=== PATIENT | male | born 1995 | race Caucasian/White ===

== ENCOUNTER 2024-06-05 01:49 | Emergency (ER) | payer SELFPAY ==
[2024-06-05 01:54] VITALS: BP 147/97; PULSE 98; RESP 15; TEMP 36.6; O2SAT 96
--- NOTE | 2024-06-05 01:58 | ED.EAR ---
HPI - Ear Problem General Chief complaint: Ear <Juliane Larry PA-C - Last Filed: 06/05/24 02:23> Stated complaint: bug in right ear <Juliane Larry PA-C - Last Filed: 06/05/24 02:23> Time Seen by Provider: 06/05/24 01:55 <Juliane Larry PA-C - Last Filed: 06/05/24 02:23> Source: patient <Juliane Larry PA-C - Last Filed: 06/05/24 02:23> Mode of arrival: ambulatory <Juliane Larry PA-C - Last Filed: 06/05/24 02:23> Limitations: no limitations <Juliane Larry PA-C - Last Filed: 06/05/24 02:23> History of Present Illness HPI Narrative: This is a 29-year-old male that presents to the emergency department for about in his ear. He woke up to feeling abnormal sensations in his ear. They tried several things at home were unable to remove the bug. He still hears it moving. <Juliane Larry PA-C - Last Filed: 06/05/24 02:23> Related Data Allergies/adverse reactions: Allergies Allergy/AdvReac Type Severity Reaction Status Date / Time No Known Allergies Allergy Verified 06/05/24 01:51 <Juliane Larry PA-C - Last Filed: 06/05/24 02:23> Review of Systems Review of Systems: CONSTITUTIONAL: Denies fever, ENT: Reports foreign body <Juliane Larry PA-C - Last Filed: 06/05/24 02:23> All systems reviewed & are unremarkable except as noted in HPI and below <Juliane Larry PA-C - Last Filed: 06/05/24 02:23> [facility] Past Medical History Medical History: Medical History (Updated 06/05/24 @ 02:19 by Juliane Larry PA-C) No active medical problems <Juliane Larry PA-C - Last Filed: 06/05/24 02:23> Social History Social History: Social History (Updated 06/05/24 @ 02:09 by Juliane Larry PA-C) Substance use: never <Juliane Larry PA-C - Last Filed: 06/05/24 02:23> Exam Narrative: GENERAL: Well-appearing, well-nourished, and in no acute distress. HEAD: Normocephalic, atraumatic. EYES: EOMI. ENT: Right external auditory canal with bug present EXTREMITIES: Normal range of motion. No edema. SKIN: Warm, dry, no rash. NEURO: No focal deficits. Alert and oriented x3. PSYCH: Normal mood and affect <Juliane Larry PA-C - Last Filed: 06/05/24 02:23> Course NURSE CLINICIAN/PA Physician Supervision I agree with midlevel documentation; I performed the medical decision making component of this evaluation as well as my independent evaluation assessment the patient. I did perform the foreign body removal from the ear. <Estuardo Meadows MD - Last Filed: 06/05/24 04:25> Vital Signs Vital signs: Vital Signs Temperature 36.6 C 06/05/24 01:54 Pulse Rate 98 06/05/24 01:54 Respiratory Rate 15 06/05/24 01:54 Blood Pressure 147/97 H 06/05/24 01:54 Pulse Oximetry 96 06/05/24 01:54 Oxygen Delivery Room Air 06/05/24 01:54 Temperature 36.6 C 06/05/24 01:54 Pulse Rate 98 06/05/24 01:54 Respiratory Rate 15 06/05/24 01:54 Blood Pressure 147/97 H 06/05/24 01:54 Pulse Oximetry 96 06/05/24 01:54 Oxygen Delivery Room Air 06/05/24 01:54 <Juliane Larry PA-C - Last Filed: 06/05/24 02:23> Vital Signs Temperature 36.6 C 06/05/24 01:54 Pulse Rate 98 06/05/24 01:54 Respiratory Rate 15 06/05/24 01:54 Blood Pressure 147/97 H 06/05/24 01:54 Pulse Oximetry 96 06/05/24 01:54 Oxygen Delivery Room Air 06/05/24 01:54 Temperature 36.6 C 06/05/24 01:54 Pulse Rate 98 06/05/24 01:54 Respiratory Rate 15 06/05/24 01:54 Blood Pressure 147/97 H 06/05/24 01:54 Pulse Oximetry 96 06/05/24 01:54 Oxygen Delivery Room Air 06/05/24 01:54 <Estuardo Meadows MD - Last Filed: 06/05/24 04:25> Procedures FB Removal Ear Foreign Body #1: Foreign Body Removal Date: 06/05/24 <Juliane Larry PA-C - Last Filed: 06/05/24 02:23> Foreign Body Removal Time: 02:21 <Juliane Larry PA-C - Last Filed: 06/05/24 02:23> Location: ear canal (R) <Juliane Larry PA-C - Last Filed: 06/05/24 02:23> ear canal (R) <Estuardo Meadows MD - Last Filed: 06/05/24 04:25> Foreign Body Suspected: insect (2 insects were removed) <Juliane Larry PA-C - Last Filed: 06/05/24 02:23> insect <Estuardo Meadows MD - Last Filed: 06/05/24 04:25> TM intact pre-procedure: yes <Juliane Larry PA-C - Last Filed: 06/05/24 02:23> yes <Estuardo Meadows MD - Last Filed: 06/05/24 04:25> If Insect Suspected: ear canal instilled with Lidocaine <Juliane Larry PA-C - Last Filed: 06/05/24 02:23> ear canal instilled with Lidocaine <Estuardo Meadows MD - Last Filed: 06/05/24 04:25> Foreign Body Removed: yes <Juliane Larry PA-C - Last Filed: 06/05/24 02:23> yes <Estuardo Meadows MD - Last Filed: 06/05/24 04:25> Foreign Body Removal Technique: forceps <Juliane Larry PA-C - Last Filed: 06/05/24 02:23> forceps <Estuardo Meadows MD - Last Filed: 06/05/24 04:25> Tympanic Membrane Intact Post Procedure: Yes <Juliane Larry PA-C - Last Filed: 06/05/24 02:23> Yes <Estuardo Meadows MD - Last Filed: 06/05/24 04:25> Patient Tolerated Procedure: well and no complications <Juliane Larry PA-C - Last Filed: 06/05/24 02:23> well and no complications <Estuardo Meadows MD - Last Filed: 06/05/24 04:25> Complications: none <Juliane Larry PA-C - Last Filed: 06/05/24 02:23> none <Estuardo Meadows MD - Last Filed: 06/05/24 04:25> Additional Comments: procedure performed by Dr. Meadows <Juliane Larry PA-C - Last Filed: 06/05/24 02:23> Medical Decision Making MDM Narrative Medical decision making narrative: Patient presents to the emergency department for bug in his ear. 2 bugs were successfully removed. TM is intact post removal. No trauma to the external auditory canal. Patient to follow-up with PCP as needed <Juliane Larry PA-C - Last Filed: 06/05/24 02:23> Vital Signs Vital Signs: Vital Signs Temperature 36.6 C 06/05/24 01:54 Pulse Rate 98 06/05/24 01:54 Respiratory Rate 15 06/05/24 01:54 Blood Pressure 147/97 H 06/05/24 01:54 Pulse Oximetry 96 06/05/24 01:54 Oxygen Delivery Room Air 06/05/24 01:54 Temperature 36.6 C 06/05/24 01:54 Pulse Rate 98 06/05/24 01:54 Respiratory Rate 15 06/05/24 01:54 Blood Pressure 147/97 H 06/05/24 01:54 Pulse Oximetry 96 06/05/24 01:54 Oxygen Delivery Room Air 06/05/24 01:54 <Juliane Larry PA-C - Last Filed: 06/05/24 02:23> Vital Signs Temperature 36.6 C 06/05/24 01:54 Pulse Rate 98 06/05/24 01:54 Respiratory Rate 15 06/05/24 01:54 Blood Pressure 147/97 H 06/05/24 01:54 Pulse Oximetry 96 06/05/24 01:54 Oxygen Delivery Room Air 06/05/24 01:54 Temperature 36.6 C 06/05/24 01:54 Pulse Rate 98 06/05/24 01:54 Respiratory Rate 15 06/05/24 01:54 Blood Pressure 147/97 H 06/05/24 01:54 Pulse Oximetry 96 06/05/24 01:54 Oxygen Delivery Room Air 06/05/24 01:54 <Estuardo Meadows MD - Last Filed: 06/05/24 04:25> Critical Care Time Critical Care Time Critical Care Time: No <Juliane Larry PA-C - Last Filed: 06/05/24 02:23> Discharge Plan Discharge Clinical Impression: Foreign body in right ear Qualifiers: Encounter type: initial encounter Qualified Code(s): T16.1XXA - Foreign body in right ear, initial encounter <Juliane Larry PA-C - Last Filed: 06/05/24 02:23> Patient Disposition: Home, Self-Care <Juliane Larry PA-C - Last Filed: 06/05/24 02:23> Condition: Stable <Juliane Larry PA-C - Last Filed: 06/05/24 02:23> Instructions: Ear Foreign Body (ED) <Juliane Larry PA-C - Last Filed: 06/05/24 02:23> Additional Instructions: Return to the ER if you experience fever, redness and swelling of your ear, or any other symptoms that are concerning to you Follow up with your PCP as needed <Juliane Larry PA-C - Last Filed: 06/05/24 02:23> Follow-up/Referrals: PHYSICIAN NOT ON STAFF,NONSTAFF [Primary Care Provider] - Toby Elkins MD [Physician] - <Juliane Larry PA-C - Last Filed: 06/05/24 02:23>
== END 2024-06-05 02:39 | disposition home or self-care (01) ==
LOC: ANHED 02:26
PROVIDERS: Emergency Provider Physician Assistant
DX: T16.1XXA Foreign body in right ear, initial encounter (principal); W44.F4XA Insect entering into or through a natural orifice, initial encounter
CPT/HCPCS: 69200; 99282; J2003

== ENCOUNTER 2024-06-09 11:59 | Emergency (ER) | payer SELFPAY ==
[2024-06-09 12:20] VITALS: BP 153/86; PULSE 104; RESP 17; TEMP 36.7; O2SAT 99
--- NOTE | 2024-06-09 12:54 | ED.WOUNDLAC ---
HPI - Wound/Laceration General Chief Complaint: Wound/Laceration <Juliane Larry PA-C - Last Filed: 06/09/24 18:35> Stated Complaint: L arm lac <Juliane Larry PA-C - Last Filed: 06/09/24 18:35> Time Seen by Provider: 06/09/24 12:54 <Juliane Larry PA-C - Last Filed: 06/09/24 18:35> Focused HPI: This is a 29 year old male that presents to the ER for laceration to the left forearm. Reports sustained just before arrival. Unsure of last tetanus vaccination. Reports he was cutting a box and accidentally got his arm caught on a piece of metal. Denies decreased ROM or numbness. GENERAL: Well-appearing, well-nourished, and in no acute distress. HEAD: Normocephalic, atraumatic. CHEST: Clear to auscultation. ?No respiratory distress. HEART: Regular rate and rhythm.? NEURO: ?Alert and oriented x3. Patient screened in triage and initial orders placed.? ?Additional care and disposition to be based upon?diagnostic testing and treatment. <Juliane Larry PA-C - Last Filed: 06/09/24 18:35> History of Present Illness HPI narrative: I agree with the above HPI <Rayo Herrera MD - Last Filed: 06/10/24 18:29> Related Data Allergies/Adverse Reactions: Allergies Allergy/AdvReac Type Severity Reaction Status Date / Time No Known Allergies Allergy Verified 06/09/24 12:00 <Juliane Larry PA-C - Last Filed: 06/09/24 18:35> Review of Systems Review of Systems: CONSTITUTIONAL: Denies fever SKIN: Reports laceration <Juliane Larry PA-C - Last Filed: 06/09/24 18:35> All systems reviewed & are unremarkable except as noted in HPI and below <Juliane Larry PA-C - Last Filed: 06/09/24 18:35> [facility] Past Medical History Medical History: Medical History (Updated 06/10/24 @ 00:00 by Background Daemon) No active medical problems <Juliane Larry PA-C - Last Filed: 06/09/24 18:35> Social History Social History: Social History (Updated 06/05/24 @ 02:09 by Juliane Larry PA-C) Substance use: never <Juliane Larry PA-C - Last Filed: 06/09/24 18:35> Exam Narrative: GENERAL: Well-appearing, well-nourished, and in no acute distress. HEAD: Normocephalic, atraumatic. EYES: EOMI. EXTREMITIES: Normal range of motion. No edema. 3cm linear laceration into subcutaneous tissue to the left forearm SKIN: Warm, dry, no rash. NEURO: No focal deficits. Alert and oriented x3. PSYCH: Normal mood and affect <Juliane Larry PA-C - Last Filed: 06/09/24 18:35> Course Vital Signs Vital signs: Vital Signs Temperature 98.1 F 06/09/24 12:20 Pulse Rate 104 H 06/09/24 12:20 Respiratory Rate 17 06/09/24 12:20 Blood Pressure 153/86 H 06/09/24 12:20 Pulse Oximetry 99 06/09/24 12:20 Oxygen Delivery Room Air 06/09/24 12:20 Temperature 98.1 F 06/09/24 14:59 Pulse Rate 71 06/09/24 14:59 Respiratory Rate 17 06/09/24 14:59 Blood Pressure 118/89 06/09/24 14:59 Pulse Oximetry 99 06/09/24 14:59 Oxygen Delivery Room Air 06/09/24 12:20 <Juliane Larry PA-C - Last Filed: 06/09/24 18:35> Vital Signs Temperature 98.1 F 06/09/24 12:20 Pulse Rate 104 H 06/09/24 12:20 Respiratory Rate 17 06/09/24 12:20 Blood Pressure 153/86 H 06/09/24 12:20 Pulse Oximetry 99 06/09/24 12:20 Oxygen Delivery Room Air 06/09/24 12:20 Temperature 98.1 F 06/09/24 14:59 Pulse Rate 71 06/09/24 14:59 Respiratory Rate 17 06/09/24 14:59 Blood Pressure 118/89 06/09/24 14:59 Pulse Oximetry 99 06/09/24 14:59 Oxygen Delivery Room Air 06/09/24 12:20 <Rayo Herrera MD - Last Filed: 06/10/24 18:29> Procedures Laceration Laceration 1: Time: 14:48 <Rayo Herrera MD - Last Filed: 06/10/24 18:29> Site: upper extremity <Rayo Herrera MD - Last Filed: 06/10/24 18:29> Side (If applicable): left <Rayo Herrera MD - Last Filed: 06/10/24 18:29> Size (cm): 3 <Rayo Herrera MD - Last Filed: 06/10/24 18:29> Description: linear, flap and irregular <Rayo Herrera MD - Last Filed: 06/10/24 18:29> Depth: simple, single layer <Rayo Herrera MD - Last Filed: 06/10/24 18:29> Local Anesthetic: lidocaine 1% and with epi <Rayo Herrera MD - Last Filed: 06/10/24 18:29> Amount of anesthesia used (mL): 5 <Rayo Herrera MD - Last Filed: 06/10/24 18:29> Pre-repair: wound explored and irrigated <Rayo Herrera MD - Last Filed: 06/10/24 18:29> ====== Skin Level ======: Skin layer closed with: prolene <Rayo Herrera MD - Last Filed: 06/10/24 18:29> Size (cm): 4-0 <Rayo Herrera MD - Last Filed: 06/10/24 18:29> Number of sutures: 6 <Rayo Herrera MD - Last Filed: 06/10/24 18:29> ====== Subcutaneous Layer ======: ====== Muscle Layer ======: ====== Tendon Layer ======: MDM - Wound/Laceration MDM Narrative Medical decision making narrative: 29-year-old male presents emergency department for evaluation of a laceration to his arm. Laceration was repaired as described above. All questions concerns were addressed patient was comfortable the plan for discharge and close follow-up. <Rayo Herrera MD - Last Filed: 06/10/24 18:29> Differential Diagnosis Differential diagnosis: Likely laceration and avulsion of skin <JAMES Robles Last Filed: 06/09/24 18:35> Critical Care Time Critical Care Time Critical Care Time: No <JAMES Robles Last Filed: 06/09/24 18:35> Discharge Plan Discharge Clinical Impression: Laceration <JAMES Robles Last Filed: 06/09/24 18:35> Patient Disposition: Home, Self-Care <JAMES Robles Last Filed: 06/09/24 18:35> Condition: Stable <JAMES Robles Last Filed: 06/09/24 18:35> Instructions: Antibiotic Form, Care For Your Stitches (ED) <Juliane Larry PA-C - Last Filed: 06/09/24 18:35> Additional Instructions: Wound care as directed. Sutures will need to be removed in 7-10 days. Please have close follow-up with your primary care physician. <Juliane Larry PA-C - Last Filed: 06/09/24 18:35> Follow-up/Referrals: PHYSICIAN NOT ON STAFF,NONSTAFF [Non-Staff] - <Juliane Larry PA-C - Last Filed: 06/09/24 18:35>
[2024-06-09] MEDS: TETANUS,DIPHTHERIA,AC PERTUSSIS ADULT (0.5 ML) BOOSTRIX IM (13:03)
[2024-06-09 14:59] VITALS: BP 118/89; PULSE 71; RESP 17; TEMP 36.7; O2SAT 99
== END 2024-06-09 15:00 | disposition home or self-care (01) ==
PROVIDERS: Emergency Provider Emergency Medicine
DX: S51.812A Laceration without foreign body of left forearm, initial encounter (principal); W26.8XXA Contact with other sharp object(s), not elsewhere classified, initial encounter; Z23 Encounter for immunization
CPT/HCPCS: 12002; 90471; 90715; 99283

== ENCOUNTER 2024-06-16 15:50 | Emergency (ER) | payer OTHER, SELFPAY ==
[2024-06-16 15:55] VITALS: BP 149/88; PULSE 95; RESP 18; TEMP 36.4; O2SAT 100
--- NOTE | 2024-06-16 16:11 | ED_ITS ---
HPI - Recheck/Abnormal Lab/Rx General Chief Complaint: Recheck/Abnormal Lab/Rx Stated Complaint: I need to get my stiches removed Time Seen by Provider: 06/16/24 15:59 Source: patient Mode of arrival: ambulatory Limitations: no limitations History of Present Illness HPI narrative: This is a 29-year-old male who presents to the ED for suture removal. Denies pain or signs of infection. Related Data Allergies Allergy/AdvReac Type Severity Reaction Status Date / Time No Known Allergies Allergy Verified 06/16/24 15:51 Review of Systems Review of Systems: All systems as dictated in HPI [facility] Past Medical History Medical History (Updated 06/16/24 @ 16:30 by Son Hayes PA-C) No active medical problems Social History Social History (Updated 06/05/24 @ 02:09 by Juliane Larry PA-C) Substance use: never Exam Narrative: GENERAL: Well-appearing, well-nourished, and in no acute distress. SKIN: Warm, dry, no rash. 6 Prolene sutures to the left upper extr emity. No purulence. No surrounding erythema NEURO: Alert and oriented x4. No focal deficits. PSYCH: Normal mood and affect. Course Vital Signs Vital signs: Vital Signs Temperature 97.6 F 06/16/24 15:55 Pulse Rate 95 06/16/24 15:55 Respiratory Rate 18 06/16/24 15:55 Blood Pressure 149/88 H 06/16/24 15:55 Pulse Oximetry 100 06/16/24 15:55 Oxygen Delivery Room Air 06/16/24 15:55 Temperature 97.6 F 06/16/24 15:55 Pulse Rate 95 06/16/24 15:55 Respiratory Rate 18 06/16/24 15:55 Blood Pressure 149/88 H 06/16/24 15:55 Pulse Oximetry 100 06/16/24 15:55 Oxygen Delivery Room Air 06/16/24 15:55 MDM - Recheck/Abnormal Lab/Rx MDM Narrative Medical decision making narrative: 21-year-old male presents to the ED for suture removal. Six sutures were removed today. He has a bit of tissue still open to the distal aspect of the laceration although otherwise it is well healed. One Steri-Strip was placed for approximation today. Patient will be discharged in stable condition. Discharge Plan Discharge Clinical Impression: Encounter for removal of sutures Patient Disposition: Home, Self-Care Condition: Stable Instructions: Antibiotic Form Additional Instructions: Exam is well appearing overall. Please use Steri-Strips over next 4 days. If you have any new or worsening symptoms please return to the ER for further evaluation. Follow-up/Referrals: PHYSICIAN NOT ON STAFF,NONSTAFF [Primary Care Provider] - Time of Disposition: 16:31
== END 2024-06-16 16:35 | disposition home or self-care (01) ==
PROVIDERS: Emergency Provider Physician Assistant
DX: S51.812D Laceration without foreign body of left forearm, subsequent encounter (principal); X58.XXXD Exposure to other specified factors, subsequent encounter
CPT/HCPCS: 15853; 99282